=== PATIENT | female | born 1985 | race Caucasian/White ===

== ENCOUNTER 2017-05-05 15:49 | Emergency (ER) | payer BC ==
[~2017-05-05] VITALS: Ht 185.4 cm; Wt 78.5 kg
[~2017-05-05 15:49] MED LIST: AMITRIPTYLINE H25 MG; AUGMENTIN875 MG PO; Bactrim,Septra Singl PO; DAILY VALUE1 EACH PO; DEPO-PROVER150 MG/ML; Depo-Provera IM; ELAVIL25 MG PO; LORTAB 5-325 M1 EACH PO; Motrin PO; NAPROSYN500 MG PO; NATALCARE RX1 TABLE1 PO; NOHOMEMEDS; PREDNISONE10 MG PO; PREFERA-OB P1 TABLET PO; PRENATAL1 EACH; TESSALON PERLE100 MG PO; Tylenol Regular Stre PO; Ultram PO; Vicodin,Norco 5/325 PO
[2017-05-05 17:33] LABS: HEMATOCRIT 42.2 % (36.0-46.0); MCH 30.1 PG (29.0-34.0); MCHC 34.6 G/DL (30.0-36.0); MEAN PLAT.VOLUME 10.9 uM^3 (9.5-12.4); PLATELET COUNT 186 K/uL (156-360); RBC DIS.WIDTH-CV 11.9 % (11.8-14.6); RBC DIS.WIDTH-SD 37.8 % (39-53); RED BLOOD COUNT 4.85 M/uL (3.80-5.20); WHITE BLOOD COUNT 7.3 K/uL (4.1-10.2)
[2017-05-05 17:43] LABS: ADD MIUA? YES; BILIRUBIN NEGATIVE; BLOOD MODERATE; COLOR COLORLESS ((YELLOW)); GLUCOSE (STRIP) NEGATIVE; KETONES NEGATIVE; LEUKOCYTES NEGATIVE; NITRITE NEGATIVE; PROTEIN (STRIP) NEGATIVE; SPECIFIC GRAVITY 1.003 (1.000-1.030); UROBILINOGEN 0.2 MG/DL (0.2-1.0)
[2017-05-05 17:48] LABS: BACTERIA RARE /HPF; EPITHELIAL CELLS RARE /HPF; MUCUS NONE SEEN /LPF; RED BLOOD CELLS 0-5 /HPF (0-5); UCUL ADDED? NO; WHITE BLOOD CELLS 0-5 /HPF (0-5)
[2017-05-05 17:52] LABS: CHLORIDE 104 mEq/L (99-109); POTASSIUM 4.4 mEq/L (3.7-5.4); SODIUM 139 mEq/L (136-147)
[2017-05-05 17:54] LABS: GLUCOSE 89 mg/dL (70-99)
[2017-05-05 17:55] LABS: ANION GAP 8 MEQ/L (2-14)
[2017-05-05 17:58] LABS: GFR ESTIMATE (CALCULATED) > 59 mL/min/
[2017-05-05 17:59] LABS: UREA NITROGEN (BUN) 12 mg/dL (9-23)
[2017-05-05 18:08] LABS: QUANTITATIVE HCG < 4.0 MIU/ML
[2017-05-05] MEDS ORDERED: MOTRIN800 MG PO (19:13)
[2017-05-05] MEDS ORDERED: FLOMAX0.4 MG PO (19:13)
[2017-05-05] MEDS ORDERED: NORCO 5/3251 TABLET PO (19:22)
[2017-05-05 19:44] VITALS: BP 126/63
[2017-05-16] MEDS ORDERED: VICODIN 5-3001 EACH PO (16:21)
== END 2017-05-05 19:45 | disposition home or self-care (01) ==
LOC: EME 15:49
DX: N13.2 Hydronephrosis with renal and ureteral calculous obstruction (principal); Z87.442 Personal history of urinary calculi; Z88.6 Allergy status to analgesic agent
CPT/HCPCS: 74176; 80048; 81003; 84702; 85027; 99281; 99284; J1885; Q0169

== ENCOUNTER 2017-05-17 10:09 | Day surgery (SDC) | payer BC ==
[~2017-05-17] VITALS: Ht 185.4 cm; Wt 80.7 kg
[~2017-05-17 10:09] MED LIST changes: +FLOMAX0.4 MG PO; +MOTRIN800 MG PO; +NORCO 5/3251 TABLET PO; +VICODIN 5-3001 EACH PO
[2017-05-17 11:33] VITALS: BP 144/80
[2017-05-17 13:33] VITALS: BP 117/78
[2017-05-17 14:34] VITALS: BP 116/74
== END 2017-05-17 14:47 | disposition home or self-care (01) ==
LOC: SDC 10:09
PROC: 0TJ98ZZ Inspection of Ureter, Via Natural or Artificial Opening Endoscopic (ICD-10-PCS; principal; 2017-05-17)
DX: N20.2 Calculus of kidney with calculus of ureter (principal); Z87.442 Personal history of urinary calculi; Z80.3 Family history of malignant neoplasm of breast; J45.909 Unspecified asthma, uncomplicated
CPT/HCPCS: 74000; C1876; J0690; J1100; J1885; J2175; J2250; J2405; J3010; J7050

== ENCOUNTER 2017-08-17 10:32 | Emergency (ER) | payer BC ==
[~2017-08-17] VITALS: Ht 185.4 cm; Wt 78.0 kg
[2017-08-17 11:07] LABS: BASOPHIL COUNT 0.1 K/uL (0-0.1); EOSINOPHIL (%) 2.4 % (0-5); EOSINOPHIL COUNT 0.1 K/uL (0-0.3); HEMATOCRIT 45.5 % (36.0-46.0); IMMATURE GRANULOCYTE (%) 0.3 % (0.0-0.7); INSTRUMENT ABS NEUTROPHIL CT 3.6 K/uL; LYMPHOCYTE COUNT 1.5 K/uL (1.0-2.8); MCH 30.1 PG (29.0-34.0); MCHC 33.8 G/DL (30.0-36.0); MONOCYTE (%) 10.7 % (3-12); MONOCYTE COUNT 0.6 K/uL (0-0.8); NEUTROPHIL (%) 60.2 % (45-76); NEUTROPHIL COUNT 3.6 K/uL (1.8-6.4); PLATELET COUNT 200 K/uL (156-360); RBC DIS.WIDTH-CV 12.3 % (11.8-14.6); RBC DIS.WIDTH-SD 40.2 % (39-53); RED BLOOD COUNT 5.11 M/uL (3.80-5.20); WHITE BLOOD COUNT 5.9 K/uL (4.1-10.2)
[2017-08-17 11:28] LABS: TROP-I INTERPRETATION NEGATIVE; TROPONIN-I 0.04 ng/mL (0.0-0.30)
[2017-08-17 11:29] LABS: CHLORIDE 105 mEq/L (99-109); POTASSIUM 3.9 mEq/L (3.7-5.4); SODIUM 141 mEq/L (136-147)
[2017-08-17 11:31] LABS: GLUCOSE 107 mg/dL (70-99)
[2017-08-17 11:32] LABS: ANION GAP 14 MEQ/L (2-14)
[2017-08-17 11:34] LABS: GFR ESTIMATE (CALCULATED) > 59 mL/min/
[2017-08-17 11:35] LABS: UREA NITROGEN (BUN) 17 mg/dL (9-23)
[2017-08-17 12:03] LABS: QUANTITATIVE HCG < 4.0 MIU/ML
[2017-08-17 13:39] LABS: TROP-I INTERPRETATION NEGATIVE; TROPONIN-I 0.03 ng/mL (0.0-0.30)
[2017-08-17 15:14] VITALS: BP 122/65
== END 2017-08-17 15:31 | disposition home or self-care (01) ==
LOC: EME 10:32
PROVIDERS: Personal Emergency Response Attendant
DX: R07.9 Chest pain, unspecified (principal); R25.2 Cramp and spasm; Z90.49 Acquired absence of other specified parts of digestive tract
CPT/HCPCS: 71020; 80048; 84484; 84702; 85025; 93005; 99281; 99284